=== PATIENT | female | born 1965 | race Caucasian/White ===

== ENCOUNTER 2021-08-14 16:30 | Emergency (ER) | payer BC ==
--- NOTE | 2021-08-14 19:06 | XR ---
EXAMINATION TYPE: XR chest 2V DATE OF EXAM: 08/14/2021 COMPARISON: NONE HISTORY: Chest pain TECHNIQUE: 2 views FINDINGS: Heart and mediastinum are normal. Lungs are clear. Diaphragm is normal. Bony thorax appears normal. IMPRESSION: Normal chest.
[2021-08-14] MEDS ORDERED: SODIUM CHLORIDE 0.9% 1,000 ML IV STA (19:30)
--- NOTE | 2021-08-14 19:52 | ED ---
Recheck HPI - General Chief Complaint: Recheck/Abnormal Lab/Rx Stated Complaint: RT LUNG PAIN Time Seen by Provider: 08/14/21 19:10 Source: patient, RN notes reviewed Mode of arrival: ambulatory Limitations: no limitations - History of Present Illness Initial Comments: Patient is a 55-year-old female that presents to the emergency department complaining of right rib/back pain. She notes that this happened approximately with last 24 hours. She notes that whenever she takes a deep breath she has pain in her right back. She denied any cardiac history or respiratory issues. She was otherwise well-appearing. She denied any trauma or injury. She denied any previous history of blood clots or pulmonary embolus. She is otherwise well-appearing in moderate amounts pain measuring about 6-7 out of 10. She denied chest pain shortness of breath headache nausea vomiting diarrhea constipation fever fatigue chills. - Related Data Previous Rx's Medication Instructions Recorded Doxycycline Monohydrate [Monodox] 100 mg PO Q12HR #20 cap 08/14/21 Allergies Allergy/AdvReac Type Severity Reaction Status Date / Time No Known Allergies Allergy Verified 08/14/21 18:37 Review of Systems ROS Statement: Those systems with pertinent positive or pertinent negative responses have been documented in the HPI. ROS Other: All systems not noted in ROS Statement are negative. Past Medical History Past Medical History: Hypertension Additional Past Medical History / Comment(s): collapsed left lung History of Any Multi-Drug Resistant Organisms: None Reported Past Surgical History: No Surgical Hx Reported Past Psychological History: No Psychological Hx Reported Smoking Status: Former smoker Past Alcohol Use History: None Reported Past Drug Use History: None Reported General Exam Limitations: no limitations General appearance: alert, in no apparent distress Head exam: Present: atraumatic, normocephalic, normal inspection Eye exam: Present: normal appearance, PERRL, EOMI. Absent: scleral icterus, conjunctival injection, periorbital swelling ENT exam: Present: normal exam, mucous membranes moist Neck exam: Present: normal inspection. Absent: tenderness, meningismus, lymphadenopathy Respiratory exam: Present: normal lung sounds bilaterally. Absent: respiratory distress, wheezes, rales, rhonchi, stridor Cardiovascular Exam: Present: regular rate, normal rhythm, normal heart sounds. Absent: systolic murmur, diastolic murmur, rubs, gallop, clicks Extremities exam: Present: normal inspection, full ROM, normal capillary refill. Absent: tenderness, pedal edema, joint swelling, calf tenderness Neurological exam: Present: alert, oriented X3 Psychiatric exam: Present: normal affect, normal mood Skin exam: Present: warm, dry, intact, normal color. Absent: rash Course Vital Signs 08/14/21 08/14/21 08/14/21 18:37 19:15 20:20 Temperature 98.9 F Pulse Rate 87 71 Respiratory 20 18 18 Rate Blood Pressure 115/78 117/70 O2 Sat by Pulse 97 99 Oximetry Medical Decision Making - Medical Decision Making 55-year-old female complaining of right rib/back pain on deep inspiration for approximately last 24 hours. labs, EKG, chest x-ray, 1 L normal saline, 4 mg of morphine ordered. EKG within normal limits asked x-ray shows normal chest. Labs: Elevated d-dimer at 1.82, rest of labs unremarkable. CT angio of the chest ordered to rule out pulmonary embolism. CT of the chest negative for pulmonary embolus but shows posterior patchy infiltrates. Patient most likely having pleuritic chest pain due to a early pneumonia. Antibiotics will be sent to pharmacy. His discussed with Dr. Pearl, patient discharge home. - Lab Data Result diagrams: 08/14/21 19:50 08/14/21 19:50 Lab Results 08/14/21 08/14/21 08/14/21 Range/Units 19:50 19:50 19:50 WBC 8.6 (3.8-10.6) k/uL RBC 4.13 (3.80-5.40) m/uL Hgb 13.3 (11.4-16.0) gm/dL Hct 38.6 (34.0-46.0) % MCV 93.4 (80.0-100.0) fL MCH 32.2 (25.0-35.0) pg MCHC 34.5 (31.0-37.0) g/dL RDW 11.6 (11.5-15.5) % Plt Count 221 (150-450) k/uL MPV 7.1 Neutrophils % 66 % Lymphocytes % 26 % Monocytes % 5 % Eosinophils % 1 % Basophils % 0 % Neutrophils # 5.7 (1.3-7.7) k/uL Lymphocytes # 2.2 (1.0-4.8) k/uL Monocytes # 0.5 (0-1.0) k/uL Eosinophils # 0.1 (0-0.7) k/uL Basophils # 0.0 (0-0.2) k/uL PT 9.5 (9.0-12.0) sec INR 0.9 (<1.2) APTT 24.0 (22.0-30.0) sec D-Dimer (<0.60) mg/L FEU Sodium 135 L (137-145) mmol/L Potassium 4.7 (3.5-5.1) mmol/L Chloride 105 (98-107) mmol/L Carbon Dioxide 21 L (22-30) mmol/L Anion Gap 9 mmol/L BUN 15 (7-17) mg/dL Creatinine 0.68 (0.52-1.04) mg/dL Est GFR (CKD-EPI)AfAm >90 (>60 ml/min/1.73 sqM) Est GFR (CKD-EPI)NonAf >90 (>60 ml/min/1.73 sqM) Glucose 102 H (74-99) mg/dL Calcium 9.7 (8.4-10.2) mg/dL Magnesium 1.9 (1.6-2.3) mg/dL Total Bilirubin 0.6 (0.2-1.3) mg/dL AST 30 (14-36) U/L ALT 20 (4-34) U/L Alkaline Phosphatase 75 (38-126) U/L Troponin I (0.000-0.034) ng/mL Total Protein 7.8 (6.3-8.2) g/dL Albumin 4.4 (3.5-5.0) g/dL 08/14/21 08/14/21 Range/Units 19:50 19:50 WBC (3.8-10.6) k/uL RBC (3.80-5.40) m/uL Hgb (11.4-16.0) gm/dL Hct (34.0-46.0) % MCV (80.0-100.0) fL MCH (25.0-35.0) pg MCHC (31.0-37.0) g/dL RDW (11.5-15.5) % Plt Count (150-450) k/uL MPV Neutrophils % % Lymphocytes % % Monocytes % % Eosinophils % % Basophils % % Neutrophils # (1.3-7.7) k/uL Lymphocytes # (1.0-4.8) k/uL Monocytes # (0-1.0) k/uL Eosinophils # (0-0.7) k/uL Basophils # (0-0.2) k/uL PT (9.0-12.0) sec INR (<1.2) APTT (22.0-30.0) sec D-Dimer 1.37 H (<0.60) mg/L FEU Sodium (137-145) mmol/L Potassium (3.5-5.1) mmol/L Chloride (98-107) mmol/L Carbon Dioxide (22-30) mmol/L Anion Gap mmol/L BUN (7-17) mg/dL Creatinine (0.52-1.04) mg/dL Est GFR (CKD-EPI)AfAm (>60 ml/min/1.73 sqM) Est GFR (CKD-EPI)NonAf (>60 ml/min/1.73 sqM) Glucose (74-99) mg/dL Calcium (8.4-10.2) mg/dL Magnesium (1.6-2.3) mg/dL Total Bilirubin (0.2-1.3) mg/dL AST (14-36) U/L ALT (4-34) U/L Alkaline Phosphatase (38-126) U/L Troponin I <0.012 (0.000-0.034) ng/mL Total Protein (6.3-8.2) g/dL Albumin (3.5-5.0) g/dL - EKG Data -: EKG Interpreted by Hi EKG shows normal: sinus rhythm Rate: normal EKG Comments: Ventricular rate 77 bpm, MN interval 152 ms, QRS duration 82 ms, QTC 470 ms, PRT axes 63/-7/32. Normal sinus rhythm, possible left atrial enlargement, bor derline ECG. - Radiology Data Radiology results: report reviewed, image reviewed CT of the chest: No evidence of pulmonary embolism. Mild posterior basilar pulm onary interstitial infiltrates and atelectasis. Chest x-ray: Normal chest. Disposition Clinical Impression: Pleuritic chest pain, Pneumonia Disposition: HOME SELF-CARE Condition: Stable Instructions (If sedation given, give patient instructions): Bacterial Pneumonia (ED) Additional Instructions: Please return to the Emergency Department if symptoms worsen or any other concerns. Follow-up with primary care 1-2 days. Take antibiotics as prescribed. Take Motrin as needed for irritation and inflammation. Is patient prescribed a controlled substance at d/c from ED?: No Referrals: Nonstaff,Physician [Primary Care Provider] - 1-2 days Time of Disposition: 21:48
[2021-08-14 20:07] LABS: Basophils % (A) 0 %; Eosinophils # (A) 0.1 k/uL (0-0.7); Eosinophils % (A) 1 %; HCT 38.6 % (34.0-46.0); HGB 13.3 gm/dL (11.4-16.0); Lymphocytes # (A) 2.2 k/uL (1.0-4.8); Lymphocytes % (A) 26 %; MCH 32.2 pg (25.0-35.0); MCHC 34.5 g/dL (31.0-37.0); MCV 93.4 fL (80.0-100.0); Mean Platelet Volume 7.1; Monocytes # (A) 0.5 k/uL (0-1.0); Monocytes % (A) 5 %; Neutrophils # (A) 5.7 k/uL (1.3-7.7); Neutrophils % (A) 66 %; Platelet Count 221 k/uL (150-450); RBC 4.13 m/uL (3.80-5.40); RDW 11.6 % (11.5-15.5); WBC 8.6 k/uL (3.8-10.6)
[2021-08-14 20:12] LABS: INR 0.9 (<1.2); Prothrombin Time 9.5 sec (9.0-12.0)
[2021-08-14 20:17] LABS: ALT 20 U/L (4-34); AST 30 U/L (14-36); African American GFR (CKD) >90 (>60 ml/min/1.73 sqM); Albumin 4.4 g/dL (3.5-5.0); Alkaline Phosphatase 75 U/L (38-126); Anion Gap 9 mmol/L; Blood Urea Nitrogen 15 mg/dL (7-17); Calcium 9.7 mg/dL (8.4-10.2); Carbon Dioxide 21 mmol/L (22-30); Chloride 105 mmol/L (98-107); Glucose 102 mg/dL (74-99); Magnesium 1.9 mg/dL (1.6-2.3); Non-African American GFR(CKD) >90 (>60 ml/min/1.73 sqM); Sodium 135 mmol/L (137-145); Total Bilirubin 0.6 mg/dL (0.2-1.3); Total Protein 7.8 g/dL (6.3-8.2)
[2021-08-14] MEDS ORDERED: MORPHINE SULFATE 4 MG/ML SYRINGE IVP STA (20:19)
[2021-08-14 20:29] VITALS: RESP 18
[2021-08-14 20:35] LABS: Potassium 4.7 mmol/L (3.5-5.1)
--- NOTE | 2021-08-14 21:15 | CT ---
EXAMINATION TYPE: CT chest angio for PE DATE OF EXAM: 08/14/2021 COMPARISON: None HISTORY: right chest/back pain CT DLP: 372 mGycm Automated exposure control for dose reduction was used. CONTRAST: Performed with IV Contrast, patient injected with 100 mL of Isovue 370. Images obtained from the thoracic inlet to the diaphragm with IV contrast. There are 3-D post process ed images. There is some interstitial infiltrate and atelectasis in the posterior lung thomas. Heart is enlarged . There is no pericardial effusion. There is no mediastinal adenopathy. There are no hilar masses. Th ere is normal contrast opacification of the pulmonary arteries. There are no filling defects. There i s 3 cm cyst in the superior right lobe of the liver. Thoracic aorta is intact. There is no aneurysm or dissection. Thoracic spine is intact. There is mild degenerative spur formation. Sternum is intact. IMPRESSION: No evidence of pulmonary embolism. Mild posterior basilar pulmonary interstitial infiltrates and atel ectasis.
[2021-08-14 21:54] VITALS: BP 112/69; PULSE 67; TEMP 98.2
== END 2021-08-14 21:57 | disposition home or self-care (01) ==
LOC: EC 16:30
DX: R07.81 Pleurodynia (principal); J18.9 Pneumonia, unspecified organism; I10 Essential (primary) hypertension; Z87.891 Personal history of nicotine dependence
CPT/HCPCS: 99285; 96374; 96361; 36415; 93005; 85379; 80053; 83735; 84484; 85025; 85610; 85730; 71046; 71275; J2270; Q9967

== ENCOUNTER 2023-12-03 19:41 | Emergency (ER) | payer BC ==
[2023-12-03 19:57] VITALS: RESP 18; TEMP 98
--- NOTE | 2023-12-03 19:58 | ED ---
Chest Pain HPI - General Source: patient Mode of arrival: ambulatory Limitations: no limitations <Jacque Dia - Last Filed: 12/03/23 19:57> <Kranthi Chery - Last Filed: 12/03/23 23:53> - General Chief Complaint: Chest Pain Stated Complaint: chest pain SOB leg weakness Time Seen by Provider: 12/03/23 19:57 - History of Present Illness Initial Comments: 58-year-old female with history of hypertension presenting with chief complaint of chest pain. Pain started earlier today, located primarily on the left side of the chest and is a pressure-like pain. States that she has been feeling some weakness in her legs and some shortness of breath as well. (Jacque Dia) 58-year-old female history of hypertension presenting for evaluation of chest pressure. Symptoms have been present for the past 2 days, throughout the day today. No radiating symptoms. She has also had some fatigue and a very mild sore throat. No significant cough, no fever. No abdominal pain. No vomiting. (Kranthi Chery) - Related Data Previous Rx's Medication Instructions Recorded Doxycycline Monohydrate [Monodox] 100 mg PO Q12HR #20 cap 08/14/21 Allergies Allergy/AdvReac Type Severity Reaction Status Date / Time No Known Allergies Allergy Verified 12/03/23 19:47 Review of Systems ROS Other: All systems not noted in ROS Statement are negative. <Jacque Dia - Last Filed: 12/03/23 19:57> ROS Other: All systems not noted in ROS Statement are negative. <Kranthi Chery - Last Filed: 12/03/23 23:53> ROS Statement: Those systems with pertinent positive or pertinent negative responses have been documented in the HPI. Past Medical History Past Medical History: Hypertension Additional Past Medical History / Comment(s): collapsed left lung History of Any Multi-Drug Resistant Organisms: None Reported Past Surgical History: No Surgical Hx Reported Past Psychological History: No Psychological Hx Reported Smoking Status: Former smoker Past Alcohol Use History: None Reported Past Drug Use History: None Reported <Jacque Dia - Last Filed: 12/03/23 19:57> General Exam Limitations: no limitations <Jacque Dia - Last Filed: 12/03/23 19:57> General appearance: alert, in no apparent distress Head exam: Present: atraumatic, normocephalic Eye exam: Present: normal appearance, PERRL ENT exam: Present: normal exam Neck exam: Present: normal inspection. Absent: tenderness, meningismus Respiratory exam: Present: normal lung sounds bilaterally. Absent: respiratory distress, wheezes, rales, rhonchi Cardiovascular Exam: Present: regular rate, normal rhythm GI/Abdominal exam: Present: soft. Absent: distended, tenderness, guarding Extremities exam: Present: normal inspection, normal capillary refill. Absent: pedal edema, calf tenderness Neurological exam: Present: alert, oriented X3, CN II-XII intact. Absent: motor sensory deficit Psychiatric exam: Present: normal affect, normal mood Skin exam: Present: warm, dry, intact. Absent: cyanosis, diaphoretic <Kranthi Chery - Last Filed: 12/03/23 23:53> - General Exam Comments Initial Comments: Visual Physical Exam Vital signs reviewed General: Well-appearing, nontoxic, no acute distress. Head: Normocephalic, atraumatic Eyes: PERRLA, EOMI ENT: Airway patent Chest: Nonlabored breathing Skin: No visual rash, normal skin tone Neuro: Alert and oriented 3 Musculoskeletal: No gross abnormalities (Jacque Dia) Course Vital Signs 12/03/23 12/03/23 19:43 23:48 Temperature 98.0 F Pulse Rate 99 63 Respiratory 18 18 Rate Blood Pressure 168/92 131/80 O2 Sat by Pulse 98 100 Oximetry Chest Pain [facility] <Jacque Dia - Last Filed: 12/03/23 19:57> <Kranthi Chery - Last Filed: 12/03/23 23:53> - MDM I performed the quick note portion of this visit, electronically signed Jacque Dia PA-C (Jacque Dia) Was pt. sent in by a medical professional or institution ([facility], [employer] SALES REPRESENTATIVE, urgent care, hospital, or senior care...) When possible be specific @ -No Did you speak to anyone other than the patient for history (EMS, parent, family, police, friend...)? What history was obtained from this source @ -No Did you review nursing and triage notes (agree or disagree)? Why? @ -I reviewed and agree with nursing and triage notes Were old charts reviewed (outside hosp., previous admission, EMS record, old EKG, old radiological studies, urgent care reports/EKG's, senior care records)? Report findings @ -No old charts were reviewed Differential Diagnosis (chest pain, altered mental status, abdominal pain women, abdominal pain men, vaginal bleeding, weakness, fever, dyspnea, syncope, headache, dizziness, GI bleed, back pain, seizure, CVA, palpatations, mental health, musculoskeletal)? @ -[Differential Chest Pain: Stable Angina, Unstable Angina, STEMI, NSTEMI Aortic Dissection, Pneumothorax, Musculoskeletal, Esophageal Spasm GERD, Cholecystitis, Pancreatitis, Zoster, this is not meant to be an all-inclusive list. EKG interpreted by me (3pts min.). @ -Sinus rhythm rate of 89, [place] interval 165, QRS duration 88, QTc 382, no ST segment elevation, T waves are upright. X-rays interpreted by me (1pt min.). @ -None done chest x-ray is clear, no focal pneumonia, no pneumothorax, no acute findings CT interpreted by me (1pt min.). @ -None done U/S interpreted by me (1pt. min.). @ -None done What testing was considered but not performed or refused? (CT, X-rays, U/S, labs)? Why? @ -None What meds were considered but not given or refused? Why? @ -None Did you discuss the management of the patient with other professionals (professionals i.e. , PA, [employer] SALES REPRESENTATIVE, lab, RT, psych nurse, rn social work, immigration lawyer, teacher, student officer, medical case manager)? Give summary @ -No Was smoking cessation discussed for >3mins.? @ -No Was critical care preformed (if so, how long)? @ -No Were there social determinants of health that impacted care today? How? (Homelessness, low income, unemployed, alcoholism, drug addiction, transportation, low edu. Level, literacy, decrease access to med. care, half-way, rehab)? @ -No Was there de-escalation of care discussed even if they declined (Discuss DNR or withdrawal of care, Hospice)? DNR status @ -No What co-morbidities impacted this encounter? (DM, HTN, Smoking, COPD, CAD, Cancer, CVA, ARF, Chemo, Hep., AIDS, mental health diagnosis, sleep apnea, morbid obesity)? @Hypertension Was patient admitted / discharged? Hospital course, mention meds given and route, prescriptions, significant lab abnormalities, going to OR and other pertinent info. @ -[58-year-old female presenting with chest discomfort. EKG sinus rhythm without ST segment elevation. Chest x-ray is clear. Symptoms began yesterday and were present throughout the day today. She has a normal CBC, normal CMP, negative D-dimer, negative initial troponin. I did discuss the need for repeat troponin testing and patient agrees. Second troponin is also negative. I had offered observation to this patient for further testing including cardiology consultation patient declines and prefers to be discharged. She is given strict return parameters and will follow closely with her primary care provider. She will return to the emergency department with any worsening or changing symptoms. Undiagnosed new problem with uncertain prognosis? @ -No Drug Therapy requiring intensive monitoring for toxicity (Heparin, Nitro, Insulin, Cardizem)? @ -No Were any procedures done? @ -No Diagnosis/symptom? @ -[Chest discomfort Acute, or Chronic, or Acute on Chronic? @ -Acute Uncomplicated (without systemic symptoms) or Complicated (systemic symptoms)? @ -Default Side effects of treatment? @ -No Exacerbation, Progression, or Severe Exacerbation? @ -No Poses a threat to life or bodily function? How? (Chest pain, [place], [place], pneumonia, PE, COPD, DKA, ARF, appy, cholecystitis, CVA, Diverticulitis, Homicidal, Suicid al, threat to staff... and all critical care pts) @ -[Low risk at this time (Kranthi Chery) Disposition <Jacque Dia - Last Filed: 12/03/23 19:57> Is patient prescribed a controlled substance at d/c from ED?: No Time of Disposition: 23:51 <Kranthi Chery - Last Filed: 12/03/23 23:53> Clinical Impression: Chest pain Disposition: HOME SELF-CARE Condition: Fair Instructions (If sedation given, give patient instructions): Chest Pain (ED) Additional Instructions: Please return to the emergency department with worsening or changing symptoms. Please follow-up with your primary care provider. Referrals: Nonstaff,Physician [Primary Care Provider] - 1-2 days
[2023-12-03 20:20] LABS: Basophils # (A) 0.1 k/uL (0-0.2); Basophils % (A) 1 %; Eosinophils # (A) 0.1 k/uL (0-0.7); Eosinophils % (A) 1 %; HCT 37.5 % (34.0-46.0); HGB 12.9 gm/dL (11.4-16.0); Lymphocytes # (A) 2.5 k/uL (1.0-4.8); Lymphocytes % (A) 37 %; MCH 32.9 pg (25.0-35.0); MCHC 34.5 g/dL (31.0-37.0); MCV 95.2 fL (80.0-100.0); Mean Platelet Volume 7.1; Monocytes # (A) 0.2 k/uL (0-1.0); Monocytes % (A) 4 %; Neutrophils # (A) 3.8 k/uL (1.3-7.7); Neutrophils % (A) 57 %; Platelet Count 225 k/uL (150-450); RBC 3.94 m/uL (3.80-5.40); RDW 11.4 % (11.5-15.5); WBC 6.8 k/uL (3.8-10.6)
[2023-12-03 20:24] LABS: Potassium 3.6 mmol/L (3.5-5.1)
[2023-12-03 20:25] LABS: ALT 26 U/L (4-34); AST 36 U/L (14-36); African American GFR (CKD) >90 (>60 ml/min/1.73 sqM); Albumin 4.5 g/dL (3.5-5.0); Alkaline Phosphatase 70 U/L (38-126); Anion Gap 11 mmol/L; Blood Urea Nitrogen 15 mg/dL (7-17); Carbon Dioxide 20 mmol/L (22-30); Chloride 102 mmol/L (98-107); Glucose 130 mg/dL (74-99); Magnesium 1.8 mg/dL (1.6-2.3); Non-African American GFR(CKD) >90 (>60 ml/min/1.73 sqM); Sodium 133 mmol/L (137-145); Total Bilirubin 0.7 mg/dL (0.2-1.3); Total Protein 7.5 g/dL (6.3-8.2)
[2023-12-03 20:29] LABS: INR 0.9 (<1.2); Partial Thromboplastin Time 25.6 sec (22.0-30.0); Prothrombin Time 10.3 sec (10.0-12.5)
--- NOTE | 2023-12-03 20:54 | XR ---
EXAMINATION TYPE: XR chest 2V DATE OF EXAM: 12/03/2023 8:15 PM CLINICAL INDICATION:Female, 58 years old with history of Chest Pain; [facility] COMPARISON: Chest radiographs from 08/14/2021 TECHNIQUE: XR chest 2V Frontal and lateral views of the chest. FINDINGS: Lungs/Pleura: There is no evidence of pleural effusion, focal consolidation, or pneumothorax. Pulmonary vascularity: Unremarkable. Heart/mediastinum: Cardiomediastinal silhouette is unremarkable. Musculoskeletal: No acute osseous pathology. Other findings: None IMPRESSION: No acute cardiopulmonary disease/process.
[2023-12-04 00:13] VITALS: BP 131/80; PULSE 63
== END 2023-12-03 23:59 | disposition home or self-care (01) ==
LOC: EC 19:41
DX: R07.89 Other chest pain (principal); I10 Essential (primary) hypertension; Z87.891 Personal history of nicotine dependence; Z20.822 Contact with and (suspected) exposure to COVID-19
CPT/HCPCS: 36415; 71046; 80053; 83735; 84484; 85025; 85379; 85610; 85730; 87636; 93005; 99285

== ENCOUNTER 2024-03-02 12:12 | Emergency (ER) | payer BC ==
--- NOTE | 2024-03-02 13:10 | ED ---
General Adult HPI - General Chief complaint: Fall Stated complaint: fall, hurt R arm Time Seen by Provider: 03/02/24 12:27 Source: patient, RN notes reviewed Mode of arrival: ambulatory Limitations: no limitations - History of Present Illness Initial comments: 58-year-old female presents to the emergency department for evaluation of fall with right hand injury. Patient states that she was attempting to move a nightstand down the stairs when she lost her footing causing her to fall. She states that she was about 10 steps from the bottom. She reports that she was walking backward down the steps and when she started to fall, she turned around causing her to fall on her abdomen and arms. She reports pain to her right forearm. She denies head injury or blood thinners. Denies neck pain. She is able to ambulate without limitation. Up to date on tetanus vaccination. - Related Data Previous Rx's Medication Instructions Recorded Doxycycline Monohydrate [Monodox] 100 mg PO Q12HR #20 cap 08/14/21 HYDROcodone/APAP 5-325MG [Pauline 5] 1 each PO Q6HR PRN #12 tab 03/02/24 Ibuprofen [Motrin] 800 mg PO Q6HR #15 tab 03/02/24 Allergies Allergy/AdvReac Type Severity Reaction Status Date / Time No Known Allergies Allergy Verified 03/02/24 12:26 Review of Systems ROS Statement: Those systems with pertinent positive or pertinent negative responses have been documented in the HPI. ROS Other: All systems not noted in ROS Statement are negative. Past Medical History Past Medical History: Hypertension Additional Past Medical History / Comment(s): collapsed left lung History of Any Multi-Drug Resistant Organisms: None Reported Past Surgical History: No Surgical Hx Reported Past Psychological History: No Psychological Hx Reported Smoking Status: Former smoker Past Alcohol Use History: None Reported Past Drug Use History: None Reported General Exam Limitations: no limitations General appearance: alert, in no apparent distress Head exam: Present: atraumatic, normocephalic, normal inspection Eye exam: Present: normal appearance, PERRL, EOMI. Absent: scleral icterus, conjunctival injection, periorbital swelling ENT exam: Present: normal exam, mucous membranes moist Neck exam: Present: normal inspection. Absent: tenderness, meningismus, lymphadenopathy Respiratory exam: Present: normal lung sounds bilaterally. Absent: respiratory distress, wheezes, rales, rhonchi, stridor Cardiovascular Exam: Present: regular rate, normal rhythm, normal heart sounds. Absent: systolic murmur, diastolic murmur, rubs, gallop, clicks Extremities exam: Present: tenderness, normal capillary refill, other (radial pulses 2+, swelling to lateral left wrist ). Absent: full ROM (decreased ROM at right wrist d.t pain), pedal edema, joint swelling, calf tenderness Back exam: Present: normal inspection, full ROM Neurological exam: Present: alert, oriented X3, CN II-XII intact Psychiatric exam: Present: normal affect, normal mood Skin exam: Present: warm, dry, normal color, abrasion (abrasion to left doan). Absent: rash Course Vital Signs 03/02/24 03/02/24 12:22 14:28 Temperature 97.7 F 98.1 F Pulse Rate 78 72 Respiratory 16 18 Rate Blood Pressure 140/81 130/76 O2 Sat by Pulse 97 99 Oximetry Medical Decision Making - Medical Decision Making Was pt. sent in by a medical professional or institution (, PA, TRUCK SERVICE TECHNICIAN, urgent ca re, hospital, or senior living...) When possible be specific @ -No Did you speak to anyone other than the patient for history (EMS, parent, family, police, friend...)? What history was obtained from this source @ -No Did you review nursing and triage notes (agree or disagree)? Why? @ -I reviewed and agree with nursing and triage notes Were old charts reviewed (outside hosp., previous admission, EMS record, old EKG, old radiological studies, urgent care reports/EKG's, senior living records)? Report findings @ -No old charts were reviewed Differential Diagnosis (chest pain, altered mental status, abdominal pain women, abdominal pain men, vaginal bleeding, weakness, fever, dyspnea, syncope, headache, dizziness, GI bleed, back pain, seizure, CVA, palpatations, mental health, musculoskeletal)? @ -Differential Musculoskeletal Muscular strain, contusion, ligament sprain, fracture, arthritis, septic arthritis, bursitis, cellulitis, muscle spasm, nerve compression, DVT, arterial occlusion, herpes zoster, electrolyte abnormality, tumor.... This is not meant to be in all inclusive list EKG interpreted by me (3pts min.). @ -None X-rays interpreted by me (1pt min.). @ -X-ray of the right forearm and hand show distal radius fracture with intra- articular extension to the distal radial ulnar joint CT interpreted by me (1pt min.). @ -None done U/S interpreted by me (1pt. min.). @ -None done What testing was considered but not performed or refused? (CT, X-rays, U/S, labs)? Why? @ -None What meds were considered but not given or refused? Why? @ -None Did you discuss the management of the patient with other professionals (professionals i.e. , PA, TRUCK SERVICE TECHNICIAN, lab, RT, psych nurse, director of social work, supervising bailiff, teacher, environmental health officer, dependency case manager)? Give summary @ -No Was smoking cessation discussed for >3mins.? @ -No Was critical care preformed (if so, how long)? @ -No Were there social determinants of health that impacted care today? How? (Homelessness, low income, unemployed, alcoholism, drug addiction, transportation, low edu. Level, literacy, decrease access to med. care, [facility], rehab)? @ -No Was there de-escalation of care discussed even if they declined (Discuss DNR or withdrawal of care, Hospice)? DNR status @ -No What co-morbidities impacted this encounter? (DM, HTN, Smoking, COPD, CAD, Cancer, CVA, ARF, Chemo, Hep., AIDS, mental health diagnosis, sleep apnea, mor bid obesity)? @ -None Was patient admitted / discharged? Hospital course, mention meds given and route, prescriptions, significant lab abnormalities, going to OR and other pertinent info. @ -Discharge. Patient presented to the emergency department for evaluation of fall with right arm injury. Denies head injury, loss of consciousness, blood thinners. X-rays obtained of the right forearm show distal radius fracture with intra-articular extension into the distal radioulnar joint. Patient was placed in a sugar-tong splint and a sling was applied. Patient was given medication for pain control and advised to follow-up with orthopedics. Patient is understanding agreeable with this plan. Patient stable at time of discharge. Case discussed with Dr. Pearl. Undiagnosed new problem with uncertain prognosis? @ -No Drug Therapy requiring intensive monitoring for toxicity (Heparin, Nitro, Insulin, Cardizem)? @ -No Were any procedures done? @ -No Diagnosis/symptom? @ -Distal radius fracture Acute, or Chronic, or Acute on Chronic? @ -Acute Uncomplicated (without systemic symptoms) or Complicated (systemic symptoms)? @ -Uncomplicated Side effects of treatment? @ -No Exacerbation, Progression, or Severe Exacerbation? @ -No Poses a threat to life or bodily function? How? (Chest pain, [place], [place], pneumonia, PE, COPD, DKA, ARF, appy, cholecystitis, CVA, Diverticulitis, Homicidal, [place] icidal, threat to staff... and all critical care pts) @ -No Disposition Clinical Impression: Fall, Distal radius fracture, right Disposition: HOME SELF-CARE Condition: Stable Instructions (If sedation given, give patient instructions): Wrist Fracture in Adults (ED) Additional Instructions: Please follow up with orthopedics. Return to the emergency department for new or worsening symptoms. Prescriptions: Ibuprofen [Motrin] 800 mg PO Q6HR #15 tab HYDROcodone/APAP 5-325MG [Pauline 5] 1 each PO Q6HR PRN #12 tab PRN Reason: Pain Is patient prescribed a controlled substance at d/c from ED?: Yes When asked, does pt state using other controlled substances?: No If prescribed controlled substance>3 days was MAPS reviewed?: Prescribed <3 Days Referrals: Nonstaff,Physician [Primary Care Provider] - 1-2 days Marvel Michael MD [STAFF PHYSICIAN] - 1-2 days
--- NOTE | 2024-03-02 13:53 | XR ---
EXAMINATION TYPE: XR hand complete RT, XR forearm RT DATE OF EXAM: 03/02/2024 1:43 PM CLINICAL INDICATION:Female, 58 years old with history of fall; H COMPARISON: None TECHNIQUE: XR hand complete RT, XR forearm RT Frontal, lateral and oblique views were obtained. Frontal and lateral views of the forearm. FINDINGS/IMPRESSION: Multi directional distal radius fracture with intra-articular extension to the distal radioulnar join t. Mild dorsal angulation of the distal radius. Fracture line to the other joint is not well apprecia beltran at this time the ulna appears intact. The rest of the joints appear intact. No evidence or disloc ation.
[2024-03-02] MEDS: ACETAMINOPHEN TAB 500 MG TAB PO STA (14:05)
[2024-03-02 14:29] VITALS: BP 130/76; PULSE 72; RESP 18; TEMP 98.1
== END 2024-03-02 14:30 | disposition home or self-care (01) ==
LOC: EC 12:12
DX: S52.501A Unspecified fracture of the lower end of right radius, initial encounter for closed fracture (principal); S80.812A Abrasion, left lower leg, initial encounter; Z87.891 Personal history of nicotine dependence; W10.9XXA Fall (on) (from) unspecified stairs and steps, initial encounter; Y93.01 Activity, walking, marching and hiking
CPT/HCPCS: 29125; 99283